=== PATIENT | female | born 1980 | race Caucasian/White ===

== ENCOUNTER → 2018-04-20 | Outpatient (CLI) | payer OTHER ==
[~2018-04-20] MED LIST: BIRTH CONTROL PILLS PO; MULVITMINE PO
== END ==
LOC: PLD 12:24 → LAB SHORT 12:24
DX: D48.5 Neoplasm of uncertain behavior of skin (principal)
CPT/HCPCS: 88305

== ENCOUNTER → 2019-09-15 | Outpatient (CLI) | payer OTHER | END | disposition home or self-care (01) | LOC: PLD 13:19 → LAB SHORT 13:19 | DX: D48.5 Neoplasm of uncertain behavior of skin (principal) | CPT/HCPCS: 88305 ==

== ENCOUNTER → 2022-04-01 | Outpatient (CLI) | payer BC | END | disposition home or self-care (01) | LOC: PLD 11:59 → LAB SHORT 11:59 | DX: D22.62 Melanocytic nevi of left upper limb, including shoulder (principal) | CPT/HCPCS: 88305 ==